=== PATIENT | female | born 1970 | race Caucasian/White ===

== ENCOUNTER 2018-04-23 17:46 | Emergency (ER) | payer OTHER ==
[~2018-04-23] VITALS: Ht 167.6 cm; Wt 127.0 kg
[~2018-04-23 17:46] MED LIST: CLON.5 PO; CYCL10 PO; ELIQUIS5 MG PO; Fluoxetine HCl20 M1 PO; IBUP800; IBUP800 PO; PNV PRENATAL P1 EACH PO; Prozac40 MG PO; WARF5 PO; Zithromax250 MG PO
[2018-04-23 19:02] LABS: Alanine Aminotransfer (ALT/SGP 25 U/L (12-78); Albumin, Blood 3.8 g/dL (3.4-5.0); Albumin/Globulin Ratio 0.8 (0.8-1.8); Alk Phos 78 U/L (50-136); Anion Gap 5 mmol/L (6-16); Aspartate Aminotrans (AST/SGOT 15 U/L (12-37); Bilirubin, Total 0.7 mg/dL (0.1-1.0); Blood Urea Nitrogen 14 mg/dL (8-24); Bun/Creatinine Ratio 17.5 (12.0-20.0); CO2, Blood 28 mmol/L (21-32); Calcium, Blood 8.8 mg/dL (8.5-10.1); Chloride, Blood 105 mmol/L (98-108); Globulin, Blood 4.6 g/dL (2.2-4.0); Glomerular Filtration Rate >60 (60-); Glucose, Blood 99 mg/dL (70-99); Potassium, Blood 3.7 mmol/L (3.5-5.5); Sodium, Blood 138 mmol/L (136-145); Total Protein, Blood 8.4 g/dL (6.4-8.2)
[2018-04-23 19:03] LABS: BASOPHILS ABSOLUTE AUTO 0.04 K/mm3 (0.00-0.23); BASOPHILS PERCENT AUTO 1 % (0-2); EOSINOPHILS ABSOLUTE AUTO 0.28 K/mm3 (0.00-0.68); EOSINOPHILS PERCENT AUTO 4 % (0-6); Hematocrit 45.1 % (33.0-51.0); IMMATURE GRAN ABSOLUTE AUTO 0.01 K/mm3 (0.00-0.10); IMMATURE GRAN PERCENT AUTO 0 % (0-1); LYMPHOCYTES ABSOLUTE AUTO 1.89 K/mm3 (0.84-5.20); LYMPHOCYTES PERCENT AUTO 30 % (21-46); MONOCYTES ABSOLUTE AUTO 0.35 K/mm3 (0.16-1.47); MONOCYTES PERCENT AUTO 6 % (4-13); Mean Corpuscular HGB 29.9 pg (26.0-34.0); Mean Corpuscular HGB Conc 33.3 g/dL (31.5-36.5); Mean Corpuscular Volume 90 fL (80-100); Mean Platelet Volume 9.8 fL (9.1-12.4); NEUTROPHILS ABSOLUTE AUTO 3.84 K/mm3 (1.96-9.15); NEUTROPHILS PERCENT AUTO 60 % (41-73); Platelet Count 320 K/mm3 (150-400); RDW Coefficient Variation 12.4 % (11.7-14.2); RDW Standard Deviation 40.5 fL (35.1-46.3); Red Blood Cell Count 5.01 M/mm3 (3.80-5.20); White Blood Cell Count 6.41 K/mm3 (4.00-11.30)
== END 2018-04-23 20:38 | disposition home or self-care (01) ==
LOC: ER 17:46
PROVIDERS: Physician Assistant
DX: R25.2 Cramp and spasm (principal); Z91.030 Bee allergy status; Z91.048 Other nonmedicinal substance allergy status; Z79.899 Other long term (current) drug therapy; Z86.718 Personal history of other venous thrombosis and embolism
CPT/HCPCS: 36415; 80053; 85025; 93971; 99284-25

== ENCOUNTER 2018-08-26 13:17 | Emergency (ER) | payer OTHER ==
[~2018-08-26] VITALS: Ht 167.6 cm; Wt 131.5 kg
[2018-08-26] MEDS ORDERED: ALBU90OI6 INH (13:40)
[2018-08-26] MEDS ORDERED: PRED20 PO (15:07)
== END 2018-08-26 15:12 | disposition home or self-care (01) ==
LOC: ER 13:17
DX: J44.1 Chronic obstructive pulmonary disease with (acute) exacerbation (principal); E87.6 Hypokalemia; I25.2 Old myocardial infarction; Z79.899 Other long term (current) drug therapy
CPT/HCPCS: 71046; 94640; 99283-25

== ENCOUNTER 2019-09-27 19:00 | Emergency (ER) | payer OTHER ==
[~2019-09-27] VITALS: Ht 167.6 cm; Wt 131.1 kg
[~2019-09-27 19:00] MED LIST changes: +ALBU90OI6 INH; +PRED20 PO
[2019-09-27] MEDS ORDERED: BUPROPION XL150 M1 PO (19:08)
[2019-09-27] MEDS ORDERED: FUROSEMIDE20 MG PO (19:08)
[2019-09-27] MEDS ORDERED: Flovent 44 mc10.6 GM INH (19:09)
[2019-09-27] MEDS ORDERED: TRAZ100 PO (19:09)
[2019-09-27 19:38] LABS: BASOPHILS ABSOLUTE AUTO 0.04 K/mm3 (0.00-0.23); BASOPHILS PERCENT AUTO 1 % (0-2); EOSINOPHILS ABSOLUTE AUTO 0.44 K/mm3 (0.00-0.68); EOSINOPHILS PERCENT AUTO 7 % (0-6); Hemoglobin 15.2 g/dL (11.5-16.0); IMMATURE GRAN ABSOLUTE AUTO 0.02 K/mm3 (0.00-0.10); IMMATURE GRAN PERCENT AUTO 0 % (0-1); LYMPHOCYTES ABSOLUTE AUTO 1.98 K/mm3 (0.84-5.20); LYMPHOCYTES PERCENT AUTO 33 % (21-46); MONOCYTES ABSOLUTE AUTO 0.37 K/mm3 (0.16-1.47); MONOCYTES PERCENT AUTO 6 % (4-13); Mean Corpuscular HGB Conc 33.8 g/dL (31.5-36.5); Mean Corpuscular Volume 89 fL (80-100); Mean Platelet Volume 11.8 fL (9.1-12.4); NEUTROPHILS PERCENT AUTO 53 % (41-73); Platelet Count 230 K/mm3 (150-400); RDW Coefficient Variation 13.1 % (11.7-14.2); RDW Standard Deviation 42.4 fL (35.1-46.3); Red Blood Cell Count 5.06 M/mm3 (3.80-5.20); White Blood Cell Count 6.05 K/mm3 (4.00-11.30)
[2019-09-27 20:42] LABS: Alanine Aminotransfer (ALT/SGP 30 U/L (12-78); Albumin, Blood 3.4 g/dL (3.4-5.0); Alk Phos 65 U/L (50-136); Anion Gap 6 mmol/L (6-16); Aspartate Aminotrans (AST/SGOT 25 U/L (12-37); Bilirubin, Total 0.4 mg/dL (0.1-1.0); Blood Urea Nitrogen 13 mg/dL (8-24); CO2, Blood 26 mmol/L (21-32); Calcium, Blood 8.3 mg/dL (8.5-10.1); Chloride, Blood 107 mmol/L (98-108); Creatinine, Blood 0.76 mg/dL (0.40-1.00); Globulin, Blood 3.4 g/dL (2.2-4.0); Glomerular Filtration Rate >60 (60-); Glucose, Blood 118 mg/dL (70-99); Magnesium, Blood 2.3 mg/dL (1.6-2.4); Potassium, Blood 3.6 mmol/L (3.5-5.5); Sodium, Blood 139 mmol/L (136-145); Total Protein, Blood 6.8 g/dL (6.4-8.2); Troponin I <0.015 ng/mL (0.000-0.040)
[2019-09-27 20:45] LABS: Source, Urine Clean Catch
[2019-09-27 21:03] LABS: Bilirubin, Urine Neg (Neg); Blood, Urine Neg (Neg); Glucose Qualitative, Urine Neg (Neg); Ketones, Urine Neg (Neg); Leukocyte Esterase, Urine 3+ (Neg); Nitrite, Urine Neg (Neg); Protein, Urine Neg (Neg); Urobilinogen, Urine NORM (Normal)
[2019-09-27 21:10] LABS: Appearance, Urine Clear (Clear); Color, Urine Yellow (P-Yellow)
[2019-09-27 21:13] LABS: Bacteria Many /hpf; Red Blood Cells, Urine 0-2 /hpf (0-2); Squamous Epithelial Cells Few /hpf (Few)
[2019-09-27 21:14] LABS: Mucus Light (0-Heavy)
[2019-09-27] MEDS ORDERED: Bactrim Ds Tab1 EACH PO (22:13)
== END 2019-09-27 22:29 | disposition home or self-care (01) ==
LOC: ER 19:00
PROVIDERS: Emergency Medicine
DX: R55 Syncope and collapse (principal); N39.0 Urinary tract infection, site not specified; E86.0 Dehydration; Z91.030 Bee allergy status; Z91.013 Allergy to seafood; Z88.8 Allergy status to other drugs, medicaments and biological substances; Z79.899 Other long term (current) drug therapy; Z86.718 Personal history of other venous thrombosis and embolism; Z86.711 Personal history of pulmonary embolism; F41.9 Anxiety disorder, unspecified; F43.10 Post-traumatic stress disorder, unspecified
CPT/HCPCS: 36415; 80053; 81001; 81025; 83735; 83880; 84484; 85025; 85379; 87086; 93005; 93010; 96360; 96361; 99284-25; A9270-GY; J7030

== ENCOUNTER 2020-02-19 16:42 | Emergency (ER) | payer OTHER ==
[~2020-02-19] VITALS: Ht 167.6 cm; Wt 129.3 kg
[~2020-02-19 16:42] MED LIST changes: +BUPROPION XL150 M1 PO; +Bactrim Ds Tab1 EACH PO; +FUROSEMIDE20 MG PO; +Flovent 44 mc10.6 GM INH; +TRAZ100 PO
== END 2020-02-19 21:07 | disposition home or self-care (01) ==
LOC: ER 16:42
DX: R06.02 Shortness of breath (principal); R05 Cough; R79.1 Abnormal coagulation profile; Z88.8 Allergy status to other drugs, medicaments and biological substances; Z86.73 Personal history of transient ischemic attack (TIA), and cerebral infarction without residual deficits; Z91.030 Bee allergy status; Z79.899 Other long term (current) drug therapy
CPT/HCPCS: 71260; 99283-25; Q9967

== ENCOUNTER → 2022-01-16 | Outpatient (CLI) | payer OTHER ==
[2022-01-16 13:29] LABS: BASOPHILS ABSOLUTE AUTO 0.04 K/mm3 (0.00-0.23); BASOPHILS PERCENT AUTO 1 % (0-2); EOSINOPHILS ABSOLUTE AUTO 0.25 K/mm3 (0.00-0.68); EOSINOPHILS PERCENT AUTO 4 % (0-6); Hematocrit 44.9 % (33.0-51.0); Hemoglobin 15.5 g/dL (11.5-16.0); IMMATURE GRAN ABSOLUTE AUTO 0.02 K/mm3 (0.00-0.10); IMMATURE GRAN PERCENT AUTO 0 % (0-1); LYMPHOCYTES ABSOLUTE AUTO 1.73 K/mm3 (0.84-5.20); LYMPHOCYTES PERCENT AUTO 31 % (21-46); MONOCYTES ABSOLUTE AUTO 0.39 K/mm3 (0.16-1.47); MONOCYTES PERCENT AUTO 7 % (4-13); Mean Corpuscular HGB 31.2 pg (26.0-34.0); Mean Corpuscular HGB Conc 34.5 g/dL (31.5-36.5); Mean Corpuscular Volume 90 fL (80-100); NEUTROPHILS PERCENT AUTO 57 % (41-73); Platelet Count 264 K/mm3 (150-400); RDW Coefficient Variation 13.4 % (11.7-14.2); Red Blood Cell Count 4.97 M/mm3 (3.80-5.20); White Blood Cell Count 5.63 K/mm3 (4.00-11.30)
[2022-01-16 13:43] LABS: Albumin, Blood 3.8 g/dL (3.4-5.0); Albumin/Globulin Ratio 0.9 (0.8-1.8); Bilirubin, Total 0.4 mg/dL (0.1-1.0); Bun/Creatinine Ratio 14.1 (12.0-20.0); Calcium, Blood 9.6 mg/dL (8.5-10.1); Creatinine, Blood 0.85 mg/dL (0.40-1.00); Globulin, Blood 4.2 g/dL (2.2-4.0); Potassium, Blood 4.2 mmol/L (3.5-5.5)
== END | disposition home or self-care (01) ==
LOC: LAB SHORT 13:23 → LAB 13:23
PROVIDERS: Family Medicine
DX: R22.40 Localized swelling, mass and lump, unspecified lower limb (principal)
CPT/HCPCS: 80053; 85025; 85379

== ENCOUNTER 2024-07-23 02:01 | Emergency (ER) | payer OTHER ==
[~2024-07-23] VITALS: Ht 167.6 cm; Wt 172.4 kg
[2024-07-23 10:00] VITALS: BP 166/92
== END 2024-07-23 11:29 | disposition home or self-care (01) ==
LOC: ER 02:01
DX: K80.10 Calculus of gallbladder with chronic cholecystitis without obstruction (principal); F43.10 Post-traumatic stress disorder, unspecified; Z79.51 Long term (current) use of inhaled steroids; Z79.899 Other long term (current) drug therapy; Z91.030 Bee allergy status; Z91.013 Allergy to seafood; Z88.8 Allergy status to other drugs, medicaments and biological substances